=== PATIENT | male | born 1930 | race Caucasian/White ===

== ENCOUNTER → 2018-01-13 | Outpatient (CLI) | payer MEDICARE, BC ==
--- NOTE | 2018-01-13 14:02 | XR ---
Cervical spine HISTORY: Neck pain 4 views of the cervical spine No comparisons There is no significant foraminal encroachment. Lateral extension of endplates may causing mild jose inal encroachment at C5-6 on the right. There are facet arthropathy changes. Multilevel spondylosis i s present. Anterolisthesis grade 1 C2-3, retrolisthesis grade 1 C3-4, C4-5, C5-6. There is associated loss of disc height especially at C3-4, C4-5 and C5-6. Cervical vertebral bodies show preserved heig ht. Prevertebral soft tissues are normal. Bone mineralization is reduced. No odontoid view is submitt ed. IMPRESSION: Degenerative disc disease and facet arthropathy. Osteopenia. Exam is limited.
== END ==
LOC: RADXRYALE 11:15
PROVIDERS: ATTEND Physician Assistant Medical
DX: M50.31 Other cervical disc degeneration, high cervical region (principal); M46.96 Unspecified inflammatory spondylopathy, lumbar region; M85.88 Other specified disorders of bone density and structure, other site
CPT/HCPCS: 72050

== ENCOUNTER 2019-09-15 10:51 | Day surgery (SDC) | payer MEDICARE, BC ==
[2019-09-07 14:08] VITALS: BMI 22.1
[~2019-09-15 10:51] MED LIST: LACTATED RINGERS 1,000 ML IV SCH; LIDOCAINE 1% 20 ML VIAL (10MG/ML) FOR IV START INTRADERMA PRN
[2019-09-15 11:06] VITALS: TEMP 97.6
[2019-09-15] MEDS ORDERED: LIDOCAINE 1% INJ 10MG/ML (20 ML MDV) ONE (12:51)
[2019-09-15] MEDS ORDERED: PROPOFOL 10 MG/ML 20 ML VIAL IV ONE (12:51)
--- NOTE | 2019-09-15 13:07 | P.PCN ---
Date of Procedure: 09/15/19 Procedure(s) Performed: BRIEF HISTORY: Patient is a 89-year-old, pleasant, white male, scheduled for an upper endoscopy as a part of evaluation of intermittent dysphagia to solids for the last 15 years duration. He lost about 5-6 pounds in the last 3 months.. PROCEDURE PERFORMED: Esophagogastroduodenoscopy with biopsy . PREOPERATIVE DIAGNOSIS intermittent dysphagia to solids. IV sedation per anesthesia. PROCEDURE: After informed consent was obtained, the patient was brought into the endoscopy unit. IV sedation was administered by Anesthesia under continuous monitoring. Initially the Olympus GIF-140 video endoscope was inserted into the mouth. Esophagus intubated without some difficulty. There was some hesitancy to the passage of the scope at the oropharyngeal is consistent cricopharyngeus dysfunction. It was gradually advanced into the stomach and duodenum and carefully examined. The bulb and the second part of the duodenum appeared normal. The scope at this time was withdrawn to the stomach, adequately insufflated with air, and upon careful examination, mucosa of the antrum, body, cardia and the fundus appeared normal. The scope was then withdrawn into the esophagus. The GE junction was located at 44 cm from the incisors. There was an early distal esophageal stricture with multiple superficial erosions consistent with LA grade C reflux esophagitis. Dilation was performed with the passage of the scope in the some oozing noted at the esophageal stricture. The rest of the esophagus appeared normal and the patient tolerated the procedure well. IMPRESSION: 1. Early distal esophageal stricture with multiple erosions consistent with LA grade C reflux esophagitis. 2. And some hesitancy to the passage of the scope at the upper esophageal sphincter consistent with cricopharyngeal dysfunction. RECOMMENDATIONS: The findings of this examination were discussed with the patient as well as his family. He was advised to follow with the biopsy results. He'll be started on Prilosec 20 mg daily and was educated about antireflux measures. He'll be seen in office in 2-3 months. If he still has persistent dysphagia at that point, he can have an upper endoscopy with possible dilation..
[2019-09-15 13:27] VITALS: BP 119/76; PULSE 76; RESP 18
== END 2019-09-15 14:00 | disposition home or self-care (01) ==
LOC: ORWHC2ENDO 10:51
PROVIDERS: ATTEND Internal Medicine Gastroenterology
DX: K22.2 Esophageal obstruction (principal); K21.0 Gastro-esophageal reflux disease with esophagitis; K22.10 Ulcer of esophagus without bleeding; N40.0 Benign prostatic hyperplasia without lower urinary tract symptoms; Z88.1 Allergy status to other antibiotic agents; Z79.82 Long term (current) use of aspirin; Z90.49 Acquired absence of other specified parts of digestive tract; Z79.899 Other long term (current) drug therapy; Z96.659 Presence of unspecified artificial knee joint; Z98.890 Other specified postprocedural states
CPT/HCPCS: 88305; 43239; 43249; J2001; J2704

== ENCOUNTER → 2020-05-06 | Outpatient (CLI) | payer MEDICARE, BC ==
--- NOTE | 2020-05-06 20:32 | XR ---
EXAMINATION TYPE: XR chest 2V DATE OF EXAM: 05/06/2020 CLINICAL HISTORY: Productive cough for 3 months TECHNIQUE: Frontal and lateral views of the chest are obtained. COMPARISON: 06/12/2016 chest radiograph FINDINGS: The cardiomediastinal silhouette is within normal limits for size. Pulmonary vasculature i s normal. There is no focal air space opacity, pleural effusion, or pneumothorax seen. The osseous st ructures are intact. IMPRESSION: No acute cardiopulmonary process.
== END | disposition home or self-care (01) ==
LOC: RADXRYALE 13:56
PROVIDERS: ATTEND Physician Assistant Medical
DX: R05 Cough (principal)
CPT/HCPCS: 71046